=== PATIENT | male | born 1960 | race Caucasian/White ===

== ENCOUNTER 2024-11-14 21:40 | Inpatient (IN) | payer MEDICARE, OTHER ==
[~2024-11-14] VITALS: Ht 180.3 cm; Wt 82.0 kg
--- NOTE | 2024-11-14 21:59 | ED.PDOC ---
History of Present Illness HPI Comments 63 y/o M is BIBA for syncope, today. Per EMS report, patient is reported to have had a sudden syncopal episode with fall injury, while on his bathroom's toilet, after having a diarrhea episode. He is stated to have been, recently, discharged from [facility] ([facility]) with staph bacteremia diagnosis and Ofloxacin medication. Patient has additional reported history of HTN and dermatomyositis and 1 prior syncopal episode during the time of admittance to [facility]. At time of assessment, patient endorses on having mild headache, that he describes as pressure-like in quality, dizziness, chills, jitteriness, generalized weakness, and diarrhea. He denies having additional symptoms or injuries at this time. Chief Complaint: Syncope Time Seen by MD: 21:55 Reviewed Notes: Nurses Notes, Boil Off Worker Notes, Medications, Allergies Allergies: Coded Allergies: NO KNOWN ALLERGIES (Unverified , 11/14/24) Information Source: Patient, Emergency Med Personnel Mode of Arrival: EMS Severity: Moderate Timing: Hours Duration: Minutes Prehospital treatment: 12 Lead EKG, Accucheck, Movement Therapist Review of Systems: REVIEW OF SYSTEMS: chills. jitteriness. No fever, or fatigue HEENT: No sore throat, no earache, no congestion, no neck pain. Cardiac: Syncope. No chest pain. No palpitations. Lungs: No shortness of breath, no cough. GI: diarrhea. No nausea, no vomiting, no constipation, no abdominal pain : No dysuria, frequency, or urgency. No hematuria. Musculoskeletal: No joint pain , no joint swelling, no extremity edema. Skin: No rash, no itching. Neuro: headache, dizziness, weakness. Vital Signs Vital Signs Date Time Temp Pulse Resp B/P (MAP) Pulse Ox O2 Delivery O2 Flow Rate FiO2 11/14/24 22:26 98.0 102 24 135/78 (97) 96 98.0 11/14/24 22:25 Room Air* 0 21 Physical Exam General: Awake, alert and oriented. No acute distress. Skin: Skin in warm, dry and intact. Appropriate color for ethnicity. HEENT: The head is normocephalic and atraumatic. Conjunctivae are clear without exudates or hemorrhage. Sclera is non-icteric. EOM are intact. No signs of nystagmus. Eyelids are normal in appearance without swelling or lesions. Oral mucosa is pink and moist Neck: The neck is supple with normal range of motion. No JVD. Cardiac: Heart rate and rhythm are normal. No murmurs, gallops, or rubs are auscultated. Respiratory: No signs of respiratory distress. Lung sounds are clear in all lobes bilaterally without rales, ronchi, or wheezes. Abdominal: Abdomen is soft, non-tender without distention. Bowel sounds are present and normoactive in all four quadrants. Extremities: Upper and lower extremities are atraumatic in appearance without deformity or edema. Neurological: The patient is awake, alert and oriented to person, place, and time with normal speech. Speech is clear. There is no facial asymmetry. Psychiatric: Appropriate mood and affect. Good judgement and insight. No visual or auditory hallucinations. Past Medical History PAST MEDICAL HISTORY: HTN Surgical History: Denies all surgeries Family History Family History: Reviewed,noncontributory to illness, No family hx of Cancer, No family hx of DM, No family hx of Heart yaz, No family hx of HTN, No family hx ofKidney yaz, No family hx of Liver yaz, No family hx of Lung yaz, No family hx of Stroke Social History Smoker: Non-Smoker Alcohol: Denies ETOH Use Drugs: Denies Drug Use Lives In: Home Was a procedure done? Was a procedure done?: No EKG EKG : Pulse Rate (adult): 92 Stephenson: Normal Cardiac Rhythm: NSR Hypertrophy: None ST: Normal Comments Left anterior fascicular block Differential Dx Considerations may include: Differential diagnoses considered include but are not limited to cardiac structural disease, arrhythmia, acute coronary syndrome, orthostasis, pulmonary embolism, dissection, seizure, basilar stroke, other. X-Ray, Labs, Meds, VS Vital Signs Date Time Temp Pulse Resp B/P (MAP) Pulse Ox O2 Delivery O2 Flow Rate FiO2 11/14/24 22:26 98.0 102 24 135/78 (97) 96 98.0 11/14/24 22:25 Room Air* 0 21 11/14/24 21:59 92 11/14/24 21:53 98.9 92 20 140/76 (97) 95 11/14/24 21:45 92 Lab Test 11/14/24 23:15 11/14/24 23:04 11/14/24 22:17 Range/Units POC Glucose 116 H 70-106 mg/dl Troponin I High Sensitivity 33 34 </=54 ng/L White Blood Count 16.9 H 4.4-10.8 10^3/uL Red Blood Count 4.51 4.5-5.90 10^6/uL Hemoglobin 15.4 13.5-17.5 g/dL Hematocrit 46.1 41.0-53.0 % Mean Corpuscular Volume 102.1 H 80.0-100.0 fL Mean Corpuscular Hemoglobin 34.1 H 28.0-32.0 pg Mean Corpuscular Hemoglobin Concent 33.4 32.0-36.0 g/dL Red Cell Distribution Width 15.2 H 11.8-14.3 % Platelet Count 400 140-450 10^3/uL Mean Platelet Volume 7.4 6.9-10.8 fL Neutrophils (%) (Auto) 91.8 H 37.0-80.0 % Lymphocytes (%) (Auto) 1.7 L 10.0-50.0 % Monocytes (%) (Auto) 5.8 0.0-12.0 % Eosinophils (%) (Auto) 0.4 0.0-7.0 % Basophils (%) (Auto) 0.3 0.0-2.0 % Neutrophils # (Auto) 15.5 H 1.6-8.6 10 ^3/uL Lymphocytes # (Auto) 0.3 L 0.4-5.4 10 ^3/uL Monocytes # (Auto) 1.0 0-1.3 10 ^3/uL Eosinophils # (Auto) 0.1 0-0.8 10 ^3/uL Basophils # (Auto) 0 0-0.2 10 ^3/uL Nucleated Red Blood Cells 0.1 % Sodium Level 137 136-145 mmol/L Potassium Level 5.1 3.5-5.1 mmol/L Chloride Level 106 98-107 mmol/L Carbon Dioxide Level 23 20-31 mmol/L Anion Gap 8 5-15 Blood Urea Nitrogen 15 9-23 mg/dL Creatinine 1.17 0.700-1.30 mg/dL Glomerular Filtration Rate Calc 69 >90 mL/min BUN/Creatinine Ratio 12.8 10.0-20.0 Serum Glucose 116 H 74-106 mg/dL Lactic Acid Level 2.3 *H 0.4-2.0 mmol/L Calcium Level 9.6 8.7-10.4 mg/dL Magnesium Level 2.2 1.6-2.6 mg/dL Total Bilirubin 0.7 0.2-1.0 mg/dL Aspartate Amino Transferase (AST) 71 H 13-40 U/L Alanine Aminotransferase (ALT) 89 H 7-40 U/L Alkaline Phosphatase 162 H 46-116 U/L B-Type Natriuretic Peptide 21.51 0-100 pg/mL Total Protein 10.2 H 5.7-8.2 g/dL Albumin 4.6 3.2-4.8 g/dL Current Medications Medications (Trade) Dose Ordered Sig/Sourav Route Start Time Stop Time Status Last Admin Sodium Chloride 1,000 ml @ 1,000 mls/hr Q1H ONCE IV 11/14/24 22:15 11/14/24 23:14 DC 11/14/24 22:40 Meclizine HCl (Antivert Tablet) 50 mg ONCE ONCE PO 11/14/24 22:15 11/14/24 22:16 DC 11/14/24 22:46 Ondansetron HCl (Zofran) 4 mg ONCE ONCE IV 11/14/24 23:00 11/14/24 23:01 DC 11/14/24 22:53 Time of 1ST Reevaluation: 22:25 Reevaluation 1ST: Unchanged Patient Education/Counseling: Treatment, Need For Follow Up Family Education/Counseling: No Family Present Departure 1 Departure Time of Disposition: 23:42 Impression: Primary Impression: Syncope Additional Impressions: Interstitial edema Cardiomegaly Disposition: ADMITTED INPATIENT Condition: Stable Comments Azsco-yehs-ndai-old male currently undergoing treatment for staph bacteremia via with PICC line at home. Has syncopal episode with head injury today. Chest x- ray shows Cardiomegaly, interstitial edema enlarged right hilum. Patient admitted for further treatment, evaluation and monitoring. Extensive evaluation was performed in attempt to identify or rule out: (See differential diagnosis section) The following tests were ordered, and results were reviewed by me: (See diagnostic results section) The following test were independently interpreted by me: EKG, chest x-ray-no acute disease I reviewed and agreed with the following test results read by other providers: Chest x-ray I reviewed the following notes from the pt's past medical encounters: October/2023 counter for shortness of breath Additional information was gathered from interviewing the following independent historians: EMS Discussion of management or test interpretation with external physician/other qualified health adult day care worker: N/A Addressed an acute or chronic illness that poses a threat to life or bodily function: Syncope, pulmonary edema Decision regarding hospitalization or escalation of hospital level of care: Risk and benefits of admission for further treatment of patient's condition was considered. Due to patient's current clinical condition, high risk of decline and poor outcome if discharged and need for further inpatient management and monitoring, patient will be admitted to the hospital. Drug therapy requiring intensive monitoring for toxicity: N/A Parenteral controlled substances: N/A Decision regarding elective major surgery with identified patient or procedure risk factors: N/A Decision regarding emergency major surgery: N/A Decision not to resuscitate or to de-escalate care because of poor prognosis: N/A Diagnosis or treatment significantly limited by social determinants of health: N/A Critical Care Note Critical Care Time?: No Stability Stability form required: No Heart Score Heart Score: Heart Score Response (Comments) Value History N/A 0 EKG N/A 0 Age N/A 0 Risk Factors N/A 0 Troponin N/A 0 Total 0 I personally scribed for JULIET POPE MD ([email or web address]) on 11/14/24 at 21:59. Electronically submitted by Walker Paul ([email or web address]). I personally scribed for JULIET POPE MD ([email or web address]) on 11/14/24 at 22:00. Electronically submitted by Walker Paul ([email or web address]). I personally scribed for JULIET POPE MD ([email or web address]) on 11/14/24 at 23:14. Electronically submitted by Walker Paul ([email or web address]). JULIET POPE MD Nov 14, 2024 21:59
[2024-11-14 22:26] VITALS: BP 135/78; PULSE 102; RESP 24; TEMP 98; O2SAT 96
[2024-11-14 22:38] LABS: Basophils # (auto) 0 10 ^3/uL (0-0.2); Eosinophils # (auto) 0.1 10 ^3/uL (0-0.8); Lymphocytes # (auto) 0.3 10 ^3/uL (0.4-5.4); Neutrophils # (auto) 15.5 10 ^3/uL (1.6-8.6)
[2024-11-14 22:40] LABS: Basophils % (auto) 0.3 % (0.0-2.0); Eosinophils % (auto) 0.4 % (0.0-7.0); Hematocrit 46.1 % (41.0-53.0); Hemoglobin 15.4 g/dL (13.5-17.5); Lymphocytes % (auto) 1.7 % (10.0-50.0); Mean Corpuscular Hemoglobin 34.1 pg (28.0-32.0); Mean Corpuscular Hgb Conc. 33.4 g/dL (32.0-36.0); Mean Corpuscular Volume 102.1 fL (80.0-100.0); Monocytes % (auto) 5.8 % (0.0-12.0); Neutrophils % (auto) 91.8 % (37.0-80.0); Nucleated Red Blood Cells % 0.1 %; Platelet Count (auto) 400 10^3/uL (140-450); Red Blood Cells 4.51 10^6/uL (4.5-5.90); Red Cell Distribution Width 15.2 % (11.8-14.3); White Blood Cell 16.9 10^3/uL (4.4-10.8)
[2024-11-14] MEDS: SODIUM CHLORIDE 0.9% 1,000 ML IV ONE (22:40)
[2024-11-14] MEDS: MECLIZINE HCL 25 MG TAB PO ONE (22:46)
[2024-11-14] MEDS: ONDANSETRON HCL 4 MG/2 ML VIAL IV ONE (22:53)
[2024-11-14 23:07] LABS: Albumin 4.6 g/dL (3.2-4.8); Anion Gap 8 (5-15); BUN/Creatinine Ratio 12.8 (10.0-20.0); Blood Urea Nitrogen 15 mg/dL (9-23); Calcium 9.6 mg/dL (8.7-10.4); Carbon Dioxide 23 mmol/L (20-31); Chloride 106 mmol/L (98-107); Magnesium 2.2 mg/dL (1.6-2.6); Potassium 5.1 mmol/L (3.5-5.1); Sodium 137 mmol/L (136-145)
[2024-11-14 23:08] LABS: Bilirubin, Total 0.7 mg/dL (0.2-1.0)
[2024-11-14 23:10] LABS: Alanine Aminotransferase 89 U/L (7-40); Alkaline Phosphatase 162 U/L (46-116); Aspartate Aminotransferase 71 U/L (13-40); Glucose 116 mg/dL (74-106); Total Protein 10.2 g/dL (5.7-8.2)
--- NOTE | 2024-11-14 23:27 | DVH ---
CHEST RADIOGRAPH Indication: cp Technique: Single frontal view of the chest was obtained Comparison: None FINDINGS: Lungs are hypoventilatory there appears to be cardiomegaly interstitial edema or chronic ch anges enlarged right hilum. And lungs are hypoventilatory. Follow-up CT examination of the chest is suggested. IMPRESSION: 1. Cardiomegaly and possible interstitial edema an enlarged right hilum. Follow-up CT examination of the chest is suggested
--- NOTE | 2024-11-14 23:47 | DVH ---
CT HEAD WITHOUT CONTRAST INDICATION: Head injury EXAM DATE: 11/14/2024 11:02 PM COMPARISON: None RADIATION DOSE: CTDIvol: 53.38 mGy, DLP: 855.85 mGy*cm PROCEDURE: CT scans of the head were obtained from the vertex to the skull base. Sagittal and coronal reconstructions were provided. All CT scans at this medical facility are performed using dose modulation techniques as appropriate t o a performed exam including the following: Automated exposure control was utilized; adjustment of th e MA and/or KV according to patient size; and use of iterative reconstruction technique. FINDINGS: . 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 There is no evidence for or hemispherical infarct. There are calcifications in the vertebral arteries. There is minimal anterior cortical atrophy. Midline structures are unremarkable lacunar infarct is al so seen well on sagittal image 37. There is severe left maxillary sinus disease and minimal right max illary sinus disease ethmoid air cells and frontal air cells are clear ethmoid air cells are clear. M astoid air cells are clear. Middle ears are unremarkable there is soft tissue in the right external auditory canal clinical correlation is advised. : Old lacunar infarct left globus pallidus. Minimal disc disease. Minimal anterior atrophy in the frontal lobes. Follow-up MRI examination may be helpful.
[2024-11-15] MEDS ORDERED: VANCOMYCIN PER PHARMACY 0 MG IV SCH (00:15)
[2024-11-15] MEDS ORDERED: ACETAMINOPHEN 325 MG TAB PO PRN (00:15)
[2024-11-15] MEDS ORDERED: HYDROcodone-ACET 5/325MG TAB PO PRN (00:15)
[2024-11-15] MEDS ORDERED: ONDANSETRON HCL 4 MG/2 ML VIAL IV PRN (00:15)
--- NOTE | 2024-11-15 00:42 | DVHHP2 ---
History of Present Illness Reason for Visit: Syncope History of Present Illness 63-year-old male presents for evaluation of syncopal episode. Patient reports having a syncopal episode at home today after eating dinner with his . He had several episodes of nausea with vomiting and diarrhea. When he went to the restroom he passed out and was found on the floor by his . Denies head trauma. Currently denies abdominal pain no dizziness no headache or blurred vision. Patient was discharged five days ago from [place] after being admitted and treated for a staph bacteremia. He was sent home and is currently receiving oxacillin daily. Denies fever or chills. No other acute complaints. Past Medical History Hypertension Past Surgical History Denies Family History Noncontributory Smoke: No ALCOHOL: none Drugs: None Lives: with Family Review of Systems Review of Systems Review of systems are currently negative otherwise addressed in HPI. Allergies: Coded Allergies: NO KNOWN ALLERGIES (Unverified , 11/14/24) Medications Current Medications Medications Dose Ordered Sig/Sourav Route Start Time Stop Time Status Last Admin Dose Admin Carvedilol 3.125 mg Q12HR PO 11/15/24 10:00 Vancomycin HCl 0 ml @ 0 mls/hr UD IV 11/15/24 00:15 UNV Acetaminophen/ Hydrocodone Bitart 1 tab Q4HP PRN PO 11/15/24 00:15 Ondansetron HCl 4 mg Q4HP PRN IV 11/15/24 00:15 Acetaminophen 650 mg Q6HP PRN PO 11/15/24 00:15 Exam Vital Signs Vital Signs Date Time Temp Pulse Resp B/P (MAP) Pulse Ox O2 Delivery O2 Flow Rate FiO2 11/14/24 22:26 98.0 102 24 135/78 (97) 96 98.0 11/14/24 22:25 Room Air* 0 21 Exam Gen: 63-year-old male in mild distress. Skin: Warm, dry, normal color and texture, no rash. HEENT: Normocephalic atraumatic, mucous membranes moist and pink. Neck: Cervical and supraclavicular nodes normal without enlargement, trachea is midline, thyroid gland is normal without masses. Pulmonary: Clear to auscultation and percussion bilaterally. Cardiac: Regular rate and rhythm. No murmur Abdomen: Soft, nontender, nondistended, bowel sounds present all 4 quadrants, no guarding, no rigidity, no organomegaly. Extremities: No cyanosis, clubbing, no edema Neuro: Cranial nerves II through XII grossly intact, normal affect and speech, no focal motor deficits. Labs/Xrays ORDERING PHYSICIAN: JULIET POPE MD PROCEDURE(s): CXR1 - CHEST XRAY 1 VIEW REASON: cp ORDER NUMBER(s): [id number], ACCESSION NUMBER(s): [id number] CHEST RADIOGRAPH Indication: cp Technique: Single frontal view of the chest was obtained Comparison: None FINDINGS: Lungs are hypoventilatory there appears to be cardiomegaly interstitial edema or chronic changes enlarged right hilum. And lungs are hypoventilatory. Follow-up CT examination of the chest is suggested. IMPRESSION: 1. Cardiomegaly and possible interstitial edema an enlarged right hilum. Follow- up CT examination of the chest is suggested RING PHYSICIAN: JULIET POPE MD PROCEDURE(s): HWOCT - HEAD WITHOUT CONTRAST REASON: Head injury ORDER NUMBER(s): [id number], ACCESSION NUMBER(s): [id number] CT HEAD WITHOUT CONTRAST INDICATION: Head injury EXAM DATE: 11/14/2024 11:02 PM COMPARISON: None RADIATION DOSE: CTDIvol: 53.38 mGy, DLP: 855.85 mGy*cm PROCEDURE: CT scans of the head were obtained from the vertex to the skull base. Sagittal and coronal reconstructions were provided. All CT scans at this medical facility are performed using dose modulation techniques as appropriate to a performed exam including the following: Automated exposure control was utilized; adjustment of the MA and/or KV according to patient size; and use of iterative reconstruction technique. FINDINGS: . 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 There is no evidence for or hemispherical infarct. There are calcifications in the vertebral arteries. There is minimal anterior cortical atrophy. Midline structures are unremarkable lacunar infarct is also seen well on sagittal image 37. There is severe left maxillary sinus disease and minimal right maxillary sinus disease ethmoid air cells and frontal air cells are clear ethmoid air cells are clear. Mastoid air cells are clear. Middle ears are unremarkable there is soft tissue in the right external auditory canal clinical correlation is advised. : Old lacunar infarct left globus pallidus. Minimal disc disease. Minimal anterior atrophy in the frontal lobes. Follow-up MRI examination may be helpful. Labs Test 11/14/24 23:15 11/14/24 23:04 11/14/24 22:17 Range/Units POC Glucose 116 H 70-106 mg/dl Troponin I High Sensitivity 33 </=54 ng/L White Blood Count 16.9 H 4.4-10.8 10^3/uL Red Blood Count 4.51 4.5-5.90 10^6/uL Hemoglobin 15.4 13.5-17.5 g/dL Hematocrit 46.1 41.0-53.0 % Mean Corpuscular Volume 102.1 H 80.0-100.0 fL Mean Corpuscular Hemoglobin 34.1 H 28.0-32.0 pg Mean Corpuscular Hemoglobin Concent 33.4 32.0-36.0 g/dL Red Cell Distribution Width 15.2 H 11.8-14.3 % Platelet Count 400 140-450 10^3/uL Mean Platelet Volume 7.4 6.9-10.8 fL Neutrophils (%) (Auto) 91.8 H 37.0-80.0 % Lymphocytes (%) (Auto) 1.7 L 10.0-50.0 % Monocytes (%) (Auto) 5.8 0.0-12.0 % Eosinophils (%) (Auto) 0.4 0.0-7.0 % Basophils (%) (Auto) 0.3 0.0-2.0 % Neutrophils # (Auto) 15.5 H 1.6-8.6 10 ^3/uL Lymphocytes # (Auto) 0.3 L 0.4-5.4 10 ^3/uL Monocytes # (Auto) 1.0 0-1.3 10 ^3/uL Eosinophils # (Auto) 0.1 0-0.8 10 ^3/uL Basophils # (Auto) 0 0-0.2 10 ^3/uL Nucleated Red Blood Cells 0.1 % Sodium Level 137 136-145 mmol/L Potassium Level 5.1 3.5-5.1 mmol/L Chloride Level 106 98-107 mmol/L Carbon Dioxide Level 23 20-31 mmol/L Anion Gap 8 5-15 Blood Urea Nitrogen 15 9-23 mg/dL Creatinine 1.17 0.700-1.30 mg/dL Glomerular Filtration Rate Calc 69 >90 mL/min BUN/Creatinine Ratio 12.8 10.0-20.0 Serum Glucose 116 H 74-106 mg/dL Calcium Level 9.6 8.7-10.4 mg/dL Magnesium Level 2.2 1.6-2.6 mg/dL Total Bilirubin 0.7 0.2-1.0 mg/dL Aspartate Amino Transferase (AST) 71 H 13-40 U/L Alanine Aminotransferase (ALT) 89 H 7-40 U/L Alkaline Phosphatase 162 H 46-116 U/L B-Type Natriuretic Peptide 21.51 0-100 pg/mL Total Protein 10.2 H 5.7-8.2 g/dL Albumin 4.6 3.2-4.8 g/dL Assessment/Plan Assessment/Plan Syncope,? Vasovagal Mild transaminitis Leukocytosis Hypertension Plan Admit the patient to [facility] to the hospitalist Blood cultures/sputum culture/UA pending CT of the abdomen and pelvis pending Vancomycin per pharmacy Resume home medications Maintenance IV fluids Continue treatment per orders Plan discussed with: Patient My Orders Orders - GORDON CLAYTON Procedure Category Date Status Time Ct Ab Pel Wo Con-No CT 11/15/24 Logged Oral Or Iv 00:03 Carvedilol Tablet PHA 11/15/24 In Process (Coreg Tablet) 10:00 Respiratory Culture AMBER 11/15/24 Logged W/ Gs 00:03 Urinalysis LAB 11/15/24 Logged 00:03 Vancomycin Per PHA 11/15/24 Pending Pharmacy 00:15 Sodium Chloride 0.9% PHA 11/15/24 In Process 00:15 Basic Metabolic Panel LAB 11/16/24 Verified 04:00 Admit ADMIT 11/15/24 Transmitted 00:03 Hydrocodone-Acet PHA 11/15/24 In Process 5/325mg Tab ([place]orraine 00:15 Ondansetron Hcl PHA 11/15/24 In Process (Zofran) 00:15 Complete Blood Count LAB 11/16/24 Verified 04:00 Cardiac DIET 11/15/24 Transmitted Diet-2gna,Lofat,Lochol Breakfast Condition: Stable HEIDY 11/15/24 In Process 00:03 Acetaminophen Tablet PHA 11/15/24 In Process (Tylenol Tablet) 00:15 Bedrest With Bathroom HEIDY 11/15/24 In Process Privileg 00:03 Vancomycin 1.5gm/300ml PHA 11/15/24 In Process 00:45 Date of Service: Nov 15, 2024 Billing Provider: GORDON CLYATON Common Visit Codes: [id number] INP/OBS CARE (HIGH) GORDON CLAYTON Nov 15, 2024 00:41
[2024-11-15 00:46] LABS: Lactic Acid w/Reflex 2.3 mmol/L (0.4-2.0)
--- NOTE | 2024-11-15 01:39 | DVH ---
Exam: CT CT AB PEL WO CON-NO ORAL OR IV History: abd. pain Comparison Study: None Technique: Multidetector spiral CT of the abdomen was performed from lung bases to pubic symphysis. Imaging was performed without IV contrast. Axial, coronal and sagittal multiplanar reformats were ob tained from the axial data set by the technologist. Radiation Dose : 1. Abdomen/Pelvis: CTDIvol 19.54 mGy, DLP 1066.76 mGy*cm. Findings: Evaluation of solid organs is limited due to lack of intravenous contrast use. Lung Bases: No acute or significant lung base finding. Normal heart size. No pleural or pericardial effusion. Liver: Liver is normal in size. No focal lesions noted. Gallbladder and Biliary Tree: No abnormality demonstrated. Spleen: No abnormality demonstrated. Pancreas: No abnormality demonstrated. Adrenal Glands: No abnormality demonstrated. Kidneys: No abnormality demonstrated. No evidence of renal calculus or hydroureteronephrosis. Bladder: Grossly unremarkable for degree of distention. Bowel: Small hiatal hernia noted. There is marked distension of the stomach with soft tissue thickeni ng in the pyloric region. Duodenum appears unremarkable. No abnormally dilated loops of small or larg e bowel noted. Considerable sigmoid diverticulosis without evidence of acute diverticulitis. Appendix appears unremarkable. Ascites: Absent Lymphadenopathy: No evidence of lymphadenopathy. Abdominal Wall and Mesentery: Bilateral fat containing inguinal hernias. Vasculature: Mild plaque in abdominal aorta and iliac arteries without aneurysmal dilatation. Pelvic Organs: Unremarkable. Musculoskeletal: No bony lesions or fracture. IMPRESSION: Marked distension of the stomach with soft tissue thickening in the pyloric region. Endoscopy can be considered for further evaluation. Radiation optimization: All CT scans at this facility use at least one of these dose optimization neil hniques: automated exposure control mA and/or kV adjustment per patient size (includes targeted exam s where dose is matched to clinical indication) or iterative reconstruction.
[2024-11-15 01:53] LABS: Urine Bacteria None Seen /hpf (None Seen)
[2024-11-15 02:25] LABS: Urine Blood TRACE /uL (Negative); Urine Clarity Turbid (Clear); Urine Color Yellow (Yellow); Urine Hyaline Cast FEW /lpf (0 - 2); Urine Mucus FEW (None Seen); Urine Protein, UAD TRACE (Negative); Urine Specific Gravity 1.023 (1.001-1.035); Urine Squamous Epithelial Cell FEW /hpf (<5); Urine Urobilinogen Normal (Negative); Urine WBC 12 /HPF (0-3); Urine pH 5.5 (5.0-9.0)
[2024-11-15] MEDS: SODIUM CHLORIDE 0.9% 1,000 ML IV ONE (03:44)
--- NOTE | 2024-11-15 06:40 | ECG ---
[facility] Test Date: 2024-11-14 Test Time: 21:45:21 Pat Name: DIDI MAY Department: ER Room: [address] [place] [address] Gender: M Senior Ux Developer: AM : 1960 Requested By: JULIET POPE Order Number: [id number] Reading MD: Measurements Intervals [place] Rate: 92 P: 38 DC: 137 QRS: -51 QRSD: 89 T: 51 QT: 343 QTc: 425 Interpretive Statements Sinus rhythm Left anterior fascicular block Abnormal R-wave progression, late transition Please click the below link to view image of tracing.
[2024-11-15] MEDS ORDERED: CARVEDILOL 3.125 MG TAB PO SCH (10:00)
== END 2024-11-15 03:47 | disposition left against medical advice (07) | DRG 312 ==
LOC: EDBD 21:40 → ER 21:40 → OVERFLOW 11-15 00:03
PROVIDERS: ADMIT Family Medicine; ATTEND Family Medicine
DX: R55 Syncope and collapse (principal); D72.829 Elevated white blood cell count, unspecified; I10 Essential (primary) hypertension; Z53.29 Procedure and treatment not carried out because of patient's decision for other reasons; R60.9 Edema, unspecified; R74.01 Elevation of levels of liver transaminase levels; Z79.899 Other long term (current) drug therapy; Z79.891 Long term (current) use of opiate analgesic; Z79.1 Long term (current) use of non-steroidal anti-inflammatories (NSAID)
CPT/HCPCS: 36415; 70450; 71045; 74176; 80053; 81001; 82962; 83605; 83735; 83880; 84484; 85025; 87040; 93005; 96361; 96374; G0378; J2405